=== PATIENT | male | born 1980 | race African-American/Black ===

== ENCOUNTER 2023-06-03 06:46 | Emergency (ER) | payer SELFPAY ==
[2023-06-03] MEDS ORDERED: NA CHLORIDE 0.9% 1,000 ML ONE (07:16)
[2023-06-03] MEDS ORDERED: ASPIRIN 81 MG CHEWABLE TABLET ONE (07:24)
[2023-06-03] MEDS ORDERED: METOPROLOL XL 50 MG TAB PO ONE (07:25)
[2023-06-03 07:27] LABS: Absolute Basophils 0.1 K/uL (0-0.5); Absolute Eosinophils 0.1 K/uL (0-0.5); Absolute Lymphocytes (CBC) 2.7 K/uL (0.7-4.9); Absolute Monocytes 0.6 K/uL (0.1-1.3); Absolute Neutrophil 3.6 K/uL (1.8-8.0); Basophils % 0.8 % (0-1.3); Eosinophils % 1.8 % (0-4.4); Hematocrit 38.7 % (39.6-49.0); Hemoglobin 12.9 g/dL (13.6-17.9); Lymphocytes % 38.2 % (15.3-44.8); MCH 27.2 pg (27.0-35.0); MCHC 33.4 g/dL (32.0-36.0); MCV 81.4 fL (80-100); MPV 7.4 fL (7.6-11.3); Monocytes % 8.9 % (3.3-12.3); Neutrophils % 50.3 % (41.7-73.7); Nucleated Red Blood Cells % 0.1 % (0-0); PT Prothrombin Time 12.5 SECONDS (9.5-12.5); Platelets 311 thou/uL (152-406); Protime INR 1.14; RBC Red Blood Cell Count 4.75 M/uL (4.33-5.43); Red Cell Distribution Width 12.9 % (12.1-15.2)
[2023-06-03 07:48] LABS: Albumin 3.7 g/dL (3.4-5.0); Albumin/Globulin Ratio 0.9 (1.1-1.8); Anion Gap 6.6 mEq/L (5.0-15.0); Bilirubin Direct 0.2 mg/dL (0-0.2); Bilirubin Indirect, Calculated 0.6 mg/dL (0.2-0.8); Bilirubin Total 0.8 mg/dL (0.2-1.0); Globulin 4.2 g/dL (2.3-3.5); Magnesium 1.9 mg/dL (1.6-2.4); Potassium 3.6 mEq/L (3.5-5.1); Protein, Total 7.9 g/dL (6.4-8.2); Thyroid Stimulating Hormone 1.26 uIU/mL (0.358-3.740); Troponin High Sensitivity 6.6 pg/mL (<58.9)
[2023-06-03 08:54] LABS: Specific Gravity 1.007 (1.005-1.030); Urine Bilirubin NEGATIVE (Negative); Urine Blood Negative (Negative); Urine Clarity Clear (Clear); Urine Color Colorless (Yellow); Urine Glucose NEGATIVE (Negative); Urine Ketones NEGATIVE (Negative); Urine Microscopic Reflex YN NO UMIC; Urine Nitrite NEGATIVE (Negative); Urine Protein NEGATIVE (Negative); Urine Urobilinogen Normal (Normal)
--- NOTE | 2023-06-03 09:21 | EDPHYS ---
Physician Documentation [facility] Name: Kashif Flood Age: 42 yrs Sex: Male : 1980 Arrival Date: 06/03/2023 Time: 06:46 Bed 4 Private MD: ED Physician Spencer Dick HPI: 06/02 06:54 This 42 yrs old Black Male presents to ER via EMS with complaints of Palpitations. rose 06:54 The patient presents with a history of heart racing. Context: The symptoms occur at [facility] rest, during sleep. Onset: The symptoms/episode began/occurred just prior to arrival. Duration: The patient or guardian reports a single episode, that is now resolved. Modifying factors: The symptoms are aggravated by nothing. The symptoms are alleviated by nothing. Associated signs and symptoms: The patient has no apparent associated signs or symptoms. Severity of symptoms: At their worst the symptoms were mild in the emergency department the symptoms are unchanged. The patient has not experienced similar symptoms in the past. 07:08 no drug use by the patient, awoke from a dream. rose Historical: - Allergies: 06:51 No Known Allergies; cm10 - Home Meds: 06:51 None [Active]; cm10 - PMHx: 06:51 Hypertensive disorder; cm10 - Immunization history:: Adult Immunizations up to date. - Infectious Disease History:: Denies. - Social history:: Smoking status: Patient denies any tobacco usage or history of. ROS: 06:59 Constitutional: Negative for fever, chills, and weight loss, Eyes: Negative for injury, rose pain, redness, and discharge, ENT: Negative for injury, pain, and discharge, Neck: Negative for injury, pain, and swelling, Respiratory: Negative for shortness of breath, cough, wheezing, and pleuritic chest pain, Abdomen/GI: Negative for abdominal pain, nausea, vomiting, diarrhea, and constipation, Back: Negative for injury and pain, : Negative for injury, bleeding, discharge, and swelling, MS/Extremity: Negative for injury and deformity, Skin: Negative for injury, rash, and discoloration, Neuro: Negative for headache, weakness, numbness, tingling, and seizure, Psych: Negative for depression, anxiety, suicide ideation, homicidal ideation, and hallucinations, Allergy/Immunology: Negative for hives, rash, and allergies, Endocrine: Negative for neck swelling, polydipsia, polyuria, polyphagia, and marked weight changes, 06:59 Cardiovascular: Positive for palpitations, Exam: 06:59 Constitutional: This is a well developed, well nourished patient who is awake, alert, rose and in no acute distress. Head/Face: Normocephalic, atraumatic. Eyes: Pupils equal round and reactive to light, extra-ocular motions intact. Lids and lashes normal. Conjunctiva and sclera are non-icteric and not injected. Cornea within normal limits. Periorbital areas with no swelling, redness, or edema. ENT: Nares patent. No nasal discharge, no septal abnormalities noted. Tympanic membranes are normal and external auditory canals are clear. Oropharynx with no redness, swelling, or masses, exudates, or evidence of obstruction, uvula midline. Mucous membranes moist. Neck: Trachea midline, no thyromegaly or masses palpated, and no cervical lymphadenopathy. Supple, full range of motion without nuchal rigidity, or vertebral point tenderness. No Meningismus. Chest/axilla: Normal chest wall appearance and motion. Nontender with no deformity. No lesions are appreciated. Respiratory: Lungs have equal breath sounds bilaterally, clear to auscultation and percussion. No rales, rhonchi or wheezes noted. No increased work of breathing, no retractions or nasal flaring. Abdomen/GI: Soft, non-tender, with normal bowel sounds. No distension or tympany. No guarding or rebound. No evidence of tenderness throughout. Back: No spinal tenderness. No costovertebral tenderness. Full range of motion. Skin: Warm, dry with normal turgor. Normal color with no rashes, no lesions, and no evidence of cellulitis. MS/ Extremity: Pulses equal, no cyanosis. Neurovascular intact. Full, normal range of motion. Neuro: Awake and alert, GCS 15, oriented to person, place, time, and situation. Cranial nerves II-XII grossly intact. Motor strength 5/5 in all extremities. Sensory grossly intact. Cerebellar exam normal. Normal gait. Psych: Awake, alert, with orientation to person, place and time. Behavior, mood, and affect are within normal limits. 06:59 Cardiovascular: Rate: normal, Rhythm: regular, Pulses: Pulses are 4+ in bilateral radial, brachial, femoral, popliteal, posterior tibial and and dorsalis pedis arteries.. Heart sounds: normal, Edema: is not appreciated, JVD: is not appreciated, 07:05 Musculoskeletal/extremity: ROM: no acute changes, intact in all extremities, rose Circulation is intact in all extremities. Sensation intact. Compartment Syndrome exam of affected extremity: is normal. Joints: All joints appear normal with full range of motion. Weight bearing: able to fully bear weight, DVT Exam: No signs of deep vein thrombosis. no pain, no swelling, no tenderness, negative Homans' sign noted on exam, no appreciated bluish discoloration, no erythema, no increased warmth, Calves: are non-tender, have equal circumference, 07:10 ECG was reviewed by the Attending Physician. [facility] Vital Signs: 06:50 Weight 92.99 kg; Height 5 ft. 11 in. ; Pain 0/10; cm10 06:51 BP 156 / 93; Pulse 94; Resp 16; Temp 98.6(TE); Pulse Ox 100% on R/A; jb4 07:21 BP 146 / 93; Pulse 80; Resp 17 S; Pulse Ox 100% on R/A; aa5 07:57 BP 127 / 87; Pulse 79; Resp 16 S; Pulse Ox 100% on R/A; aa5 06:50 Body Mass Index 28.59 (92.99 kg, 180.34 cm) cm10 06:50 Pain Scale: Adult cm10 MDM: 06:51 Patient medically screened. [facility] 07:02 TI Risk Score: Total Score = 0. Differential diagnosis: arrythmia, dehydration, rose stress disorder. Data reviewed: vital signs, nurses notes, EMS record, lab test result(s), EKG, radiologic studies, plain films. Consideration of Admission/Observation Escalation of care including admission/observation considered. I considered the following discharge prescriptions or medication management in the emergency department Medications were administered in the Emergency Department. See MAR. Independent interpretation of the following test(s) in the Emergency Department EKG: See my EKG interpretation above. Test considered but Not performed: CT: no ct chest. Historians other than the Patient: EMS: ems well informed. 09:21 Special discussion: I discussed with the patient/guardian in detail that at this point rn there is no indication for admission to the hospital. It is understood, however, that if the symptoms persist or worsen the patient needs to return immediately for re-evaluation. ED course: Patient completely back to normal. ECG without ischemia. Troponin negative. No other acute findings on workup. Will discharge home with return precautions and PCP follow-up.. 06/02 06:54 Order name: Basic Metabolic Panel; Complete Time: 07:57 [facility] 06/02 06:54 Order name: CBC with Diff; Complete Time: 07:57 [facility] 06/02 06:54 Order name: LFT's; Complete Time: 07:57 [facility] 06/02 06:54 Order name: Magnesium; Complete Time: 07:57 [facility] 06/02 06:54 Order name: NT PRO-BNP; Complete Time: 07:57 [facility] 06/02 06:54 Order name: PT-INR; Complete Time: 07:57 [facility] 06/02 06:54 Order name: Troponin HS; Complete Time: 07:57 [facility] 06/02 06:54 Order name: TSH; Complete Time: 07:57 [facility] 06/02 06:54 Order name: Urinalysis w/ reflexes; Complete Time: 09:22 [facility] 06/02 06:54 Order name: UDS; Complete Time: 09:36 [facility] 06/02 06:54 Order name: XRAY Chest (1 view) 06/02 06:54 Order name: Cardiac monitoring; Complete Time: 06:56 [facility] 06/02 06:54 Order name: EKG - Nurse/Tech; Complete Time: 07:20 [facility] 06/02 06:54 Order name: IV Saline Lock; Complete Time: 07:20 [facility] 06/02 06:54 Order name: Labs collected and sent; Complete Time: 07:20 [facility] 06/02 06:54 Order name: O2 Per Protocol; Complete Time: 06:55 [facility] 06/02 06:54 Order name: O2 Sat Monitoring; Complete Time: 06:55 [facility] EC:10 Rate is 81 beats/min. Rhythm is regular. QRS [place] is Normal. MD interval is normal. QRS rose interval is normal. QT interval is normal. No Q waves. T waves are Normal. No ST changes noted. Clinical impression: Normal ECG and No evidence of ischemia. Interpreted by me. Reviewed by me. Administered Medications: 07:15 Drug: NS 0.9% IV 1000 ml IV at 1 bolus Per protocol; 1000 mL bolus Route: IV; Rate: 1 aa5 bolus; Site: right antecubital; 08:35 Follow up: IV Status: Completed infusion; IV Intake: 1000ml 07:28 Drug: Aspirin PO Chewable Tablet 81 mg PO once Route: PO; 08:43 Follow up: Response: No adverse reaction aa5 07:28 Drug: ToPROL XL PO 25 mg PO once Route: PO; 5 08:43 Follow up: Response: No adverse reaction aa5 Disposition Summary: 06/03/23 09:21 Discharge Ordered Notes: Location: Home rn Problem: new rn Symptoms: have improved rn Condition: Stable rn Diagnosis - Palpitations rn - Tachycardia, unspecified rn - Essential (primary) hypertension rn Followup: rose - With: Private Physician - When: 2 - 3 days - Reason: Recheck today's complaints, Continuance of care, Re-evaluation by your physician Followup: rose - With: Brown Santos MD - When: 2 - 3 days - Reason: Recheck today's complaints, Re-evaluation by your physician Discharge Instructions: - Discharge Summary Sheet rose - Hypertension, Adult rose - Palpitations rose - Hypertension, Adult, [id number] rose - How to Take Your Blood Pressure, [id number] rose - Aspirin and Your Heart rose - Palpitations, Pccc-cs-[id number] rose - Sinus Tachycardia rose Forms: - Medication Reconciliation Form rn - Antibiotic furniture polisher - Prescription Opioid Use rn - Patient Portal Instructions rn - Leadership Thank You Letter rn Prescriptions: - Toprol XL 25 mg Oral Tablet - take 1 tablet ORAL route once daily; 20 tablet; Refills: 0, Product Selection rose Permitted Signatures: Dispatcher [employer] EDMeño Lees MD MD cha Nieto, Roman, MD MD rn Calderon, Audri RN RN aa5 Orin Muñoz RN RN cm10 Corrections: (The following items were deleted from the chart) 06:54 06:54 BASIC METABOLIC PANEL+C.LAB.BRZ ordered. EDMS EDMS 06:54 06:54 CBC+H.LAB.BRZ ordered. EDMS EDMS 06:54 06:54 HEPATIC FUNCTION+C.LAB.BRZ ordered. EDMS EDMS 06:54 06:54 MAGNESIUM+C.LAB.BRZ ordered. EDMS EDMS 06:54 06:54 PROBNP+C.LAB.BRZ ordered. EDMS EDMS 06:54 06:54 PROTIME (+INR)+COAG.LAB.BRZ ordered. EDMS EDMS 06:54 06:54 Troponin High Sensitivity+C.LAB.BRZ ordered. EDMS EDMS 06:54 06:54 THYROID STIMULAT HORMONE+C.LAB.BRZ ordered. EDMS EDMS :54 06:54 Urinalysis+U.LAB.BRZ ordered. EDMS EDMS 06:54 06:54 URINE DRUG SCREEN+UC.LAB.BRZ ordered. EDMS EDMS 06:54 06:54 Chest Single View+RAD.RAD.BRZ ordered. EDMS EDMS
--- NOTE | 2023-06-03 09:21 | ER ---
Nurse's Notes [facility] Name: Kashif Flood Age: 42 yrs Sex: Male : 1980 Arrival Date: 06/03/2023 Time: 06:46 Bed 4 Private MD: Diagnosis: Palpitations;Tachycardia, unspecified;Essential (primary) hypertension Presentation: 06/02 06:50 Chief complaint: Patient states: Woke up from a dream and felt his heart pounding so he cm10 called EMS. Pt denies chest pain or shortness of breath. Coronavirus screen: Client denies travel out of the [place] in the last 14 days. At this time, the client does not indicate any symptoms associated with coronavirus-19. Ebola Screen: Patient denies travel to an Ebola-affected area in the 21 days before illness onset. No symptoms or risks identified at this time. Initial Sepsis Screen: Does the patient meet any 2 criteria? No. Patient's initial sepsis screen is negative. Does the patient have a suspected source of infection? No. Patient's initial sepsis screen is negative. Risk Assessment: Do you want to hurt yourself or someone else? Patient reports no desire to harm self or others. Onset of symptoms was June 03, 2023. 06:50 Method Of Arrival: EMS: [facility] 06:50 Acuity: NIRMALA 3 cm10 Triage Assessment: 06:51 General: Appears in no apparent distress. comfortable, Behavior is. Pain: Denies pain. cm10 Neuro: No deficits noted. Level of Consciousness is awake, alert, obeys commands, Oriented to person, place, time, situation. Respiratory: No deficits noted. Airway is patent Respiratory effort is even, unlabored, Respiratory pattern is regular, symmetrical. Derm: No deficits noted. Skin is intact, Skin is pink, warm \\T\\ dry. Musculoskeletal: No deficits noted. No signs and/or symptoms reported regarding the musculoskeletal system. Range of motion: intact in all extremities. Historical: - Allergies: 06:51 No Known Allergies; cm10 - Home Meds: 06:51 None [Active]; cm10 - PMHx: 06:51 Hypertensive disorder; cm10 - Immunization history:: Adult Immunizations up to date. - Infectious Disease History:: Denies. - Social history:: Smoking status: Patient denies any tobacco usage or history of. Screenin:52 [facility] ED Fall Risk Assessment (Adult) History of falling in the last 3 months, jb4 including since admission No falls in past 3 months (0 pts) Confusion or Disorientation No (0 pts) Intoxicated or Sedated No (0 pts) Impaired Gait No (0 pts) Mobility Assist Device Used No (0 pt) Altered Elimination No (0 pt) Score/Fall Risk Level 0 - 2 = Low Risk Oriented to surroundings, Maintained a safe environment. Abuse screen: Denies threats or abuse. Nutritional screening: No deficits noted. Tuberculosis screening: No symptoms or risk factors identified. Assessment: 06:52 General: Appears in no apparent distress. comfortable, Behavior is calm, cooperative, jb4 agitated, Pt states " I was asleep. I woke up from a dream that I was running, my heart was racing. I did not get sweaty or anything like that. There was no pain, I did not feel lightheaded or dizzy. . Pain: Denies pain. Neuro: No deficits noted. Level of Consciousness is awake, alert, obeys commands, Oriented to person, place, time, situation, Denies weakness dizziness, headache. Cardiovascular: Patient's skin is warm and dry. Respiratory: Airway is patent Respiratory effort is even, unlabored, Respiratory pattern is regular, symmetrical. GI: No signs and/or symptoms were reported involving the gastrointestinal system. : No signs and/or symptoms were reported regarding the genitourinary system. EENT: No signs and/or symptoms were reported regarding the EENT system. Derm: Skin is intact, Skin is dry, Skin is normal, Skin temperature is warm. Musculoskeletal: Circulation, motion, and sensation intact. Range of motion: intact in all extremities. 07:05 General: Appears comfortable, Behavior is calm, cooperative. Pain: Denies pain. Neuro: aa5 Level of Consciousness is awake, alert, obeys commands, Oriented to person, place, time, situation. Cardiovascular: Reports episode of palpitations this morning that has resolved. Pt currently denies any symptoms. Heart tones S1 S2 present Edema is absent. Rhythm is sinus rhythm. Respiratory: Airway is patent Respiratory effort is even, unlabored, Respiratory pattern is regular, symmetrical. GI: Abdomen is round non-distended, Abd is soft and non tender X 4 quads. : No signs and/or symptoms were reported regarding the genitourinary system. EENT: No signs and/or symptoms were reported regarding the EENT system. Derm: Skin is dry, Skin is normal, Skin temperature is warm. 08:35 General: Sitting up in bed using cell phone, pt states no complaints at this time. . aa5 Neuro: Level of Consciousness is awake, alert, obeys commands, Oriented to person, place, time, situation. Cardiovascular: Rhythm is sinus rhythm. Respiratory: Airway is patent Respiratory effort is even, unlabored, Respiratory pattern is regular, symmetrical. Derm: Skin is dry, Skin is normal, Skin temperature is warm. Vital Signs: 06:50 Weight 92.99 kg; Height 5 ft. 11 in. ; Pain 0/10; cm10 06:51 BP 156 / 93; Pulse 94; Resp 16; Temp 98.6(TE); Pulse Ox 100% on R/A; jb4 07:21 BP 146 / 93; Pulse 80; Resp 17 S; Pulse Ox 100% on R/A; aa5 07:57 BP 127 / 87; Pulse 79; Resp 16 S; Pulse Ox 100% on R/A; aa5 06:50 Body Mass Index 28.59 (92.99 kg, 180.34 cm) cm10 06:50 Pain Scale: Adult cm10 ED Course: 06:50 Patient arrived in ED. cm10 06:51 Meño Davis MD is Attending Physician. [facility] 06:51 Triage completed. cm10 06:51 Arm band placed on Patient placed in an exam room, on a stretcher. cm10 06:52 Patient has correct armband on for positive identification. Bed in low position. Call jb4 light in reach. Side rails up X 1. Provided Education on: Plan of care.. 06:59 Chloe Meza, RN is Primary Nurse. aa5 07:05 EKG done, by ED staff, reviewed by Meño Davis MD. aa5 07:10 Initial lab(s) drawn, by me, sent to lab. Inserted saline lock: 20 gauge in right aa5 antecubital area, using aseptic technique. Blood collected. 07:13 XRAY Chest (1 view) In Process Unspecified. EDMS 07:32 Attending Physician role handed off by Meño Davis MD rn 07:32 Spencer Dick MD is Attending Physician. rn 08:37 Urine collected: clean catch specimen, sent to lab. aa5 09:21 Brown Santos MD is Referral Physician. rn 09:35 No provider procedures requiring assistance completed. IV discontinued, intact, aa5 bleeding controlled, No redness/swelling at site. Pressure dressing applied. Administered Medications: 07:15 Drug: NS 0.9% IV 1000 ml IV at 1 bolus Per protocol; 1000 mL bolus Route: IV; Rate: 1 aa5 bolus; Site: right antecubital; 08:35 Follow up: IV Status: Completed infusion; IV Intake: 1000ml aa5 07:28 Drug: Aspirin PO Chewable Tablet 81 mg PO once Route: PO; aa5 08:43 Follow up: Response: No adverse reaction aa5 07:28 Drug: ToPROL XL PO 25 mg PO once Route: PO; aa5 08:43 Follow up: Response: No adverse reaction aa5 Medication: 06:52 VIS not applicable for this client. jb4 Intake: 08:35 IV: 1000ml; Total: 1000ml. aa5 Outcome: 09:21 Discharge ordered by . rn 09:35 Discharged to home ambulatory, aa5 09:35 Condition: stable 09:35 Discharge instructions given to patient, Instructed on discharge instructions, follow up and referral plans. medication usage, Demonstrated understanding of instructions, follow-up care, medications, Prescriptions given X 1, 09:37 Patient left the ED. aa5 Signatures: Dispatcher [employer] EDMeño Lees MD MD cha Nieto, Roman, MD MD rn Calderon, Audri, RN RN aa5 Deni Petit RN RN jb4 Orin Muñoz RN RN cm10
[2023-06-03 09:34] LABS: Barbiturates NEGATIVE (NEGATIVE); Benzodiazepines NEGATIVE (NEGATIVE); Cocaine NEGATIVE (NEGATIVE); METHAMPHETAM NEGATIVE (NEGATIVE); Methadone NEGATIVE (NEGATIVE); Opiates NEGATIVE (NEGATIVE); Phencyclidine NEGATIVE (NEGATIVE); THC Cannibis NEGATIVE (NEGATIVE)
--- NOTE | 2023-06-03 10:02 | RAD REPORT ---
EXAM DESCRIPTION: RAD - Chest Single View - 06/03/2023 7:11 am CLINICAL HISTORY: COUGH Chest pain. COMPARISON: CHEST PA AND LAT 2 VIEW dated 05/06/2011; CHEST PA AND LAT 2 VIEW dated 08/28/2007 FINDINGS: Portable technique limits examination quality. The lungs are grossly clear. The heart is normal in size. No displaced fractures. IMPRESSION: No acute intrathoracic process suspected.
[2023-06-03 10:15] VITALS: BP 127/87; TEMP 98.6; O2SAT 100
--- NOTE | 2023-06-05 13:01 | EKG ---
Test Date: 2023-06-03 Test Time: 07:06:16 Marking Devices Assembler: GENIE MEASUREMENT RESULTS: Intervals: Rate: 81 NV: 176 QRSD: 102 QT: 372 QTc: 432 [place]: P: 68 NV: 176 QRS: 83 T: 26 INTERPRETIVE STATEMENTS: Normal sinus rhythm Normal ECG Compared to ECG 05/06/2011 18:26:17 Sinus tachycardia no longer present Electronically Signed On 06-05-23 12:55:58 CDT by Brown Santos
== END 2023-06-03 09:37 | disposition home or self-care (01) ==
LOC: ER 06:46
DX: R00.2 Palpitations (principal); R00.0 Tachycardia, unspecified; I10 Essential (primary) hypertension
CPT/HCPCS: 36415; 71045; 80048; 80076; 80307; 81003; 83735; 83880; 84443; 84484; 85025; 85610; 93005; J7030